=== PATIENT | male | born 1995 | race Caucasian/White ===

== ENCOUNTER 2017-02-06 17:50 | Emergency (ER) | payer OTHER ==
[~2017-02-06] VITALS: Ht 185.4 cm; Wt 137.4 kg
[~2017-02-06 17:50] MED LIST: AMOX875T PO
--- NOTE | 2017-02-06 18:26 | PHYS DOC ---
Past History Past Medical History: No Pertinent History Past Surgical History: No Surgical History Alcohol Use: None Drug Use: None Adult General Chief Complaint Chief Complaint: HEADACHE HPI HPI Patient is a 21 year old M who presents with a concussion. 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 Patient had no loss of consciousness but was observed on the sideline by his care trainer and went through the concussion protocol. Patient felt impression protocol. Patient was transferred to the emergency room for further evaluation and management. Patient complains of lightheaded dizziness and nausea with no vomiting. Patient went to some neck pain. Patient denies any trauma to the rest of his extremities. Patient has no other complaints. Patient does have an abscess to his right elbow that is improving. Review of Systems Review of Systems GEN: Denies fevers, chills, sweats HEENT: Denies blurred vision, sore throat CV: Denies chest pain RESP: Denies shortness of air, cough GI: Nausea NEURO: Lightheaded dizziness MSK: Denies weakness, joint pain/swelling Allergies Allergies Allergies Coded Allergies Type Severity Reaction Last Updated Verified No Known Drug Allergies 04/16/16 No Physical Exam Physical Exam GEN.: No apparent distress. Alert and oriented. HEENT: Head is normocephalic, atraumatic NECK: Supple. LUNGS: CTAB. HEART: RRR, S1, S2 present. Peripheral pulses intact ABDOMEN: Soft, nontender. Positive bowel sounds. EXTREMITIES: Without any cyanosis. NEUROLOGIC: Normal speech, normal tone, cranial nerves II through XII are grossly intact without any focal neurological deficits, normal finger to nose, normal [id number] PSYCHIATRIC: Normal affect, normal mood. SKIN: No ulcerations, small abscess healing to the right elbow, no area of induration, no area of fluctuance EKG EKG [] Radiology/Procedures Radiology/Procedures CT scan of the head and C-spine shows no intracranial process and no cervical fracture[] Course & Med Decision Making Course & Med Decision Making Pertinent Labs and Imaging studies reviewed. (See chart for details) ED course: Patient was seen and examined emergency room CT scan of the head and C-spine were ordered 1849: Updated patient on CT findings and plan to discharge home and continue with his follow-up with his college in regards to the postconcussion protocol. Patient is not cleared to play football until he sees independent physician. MDM: After reviewing the chart, CC/HPI/PMH, physical exam, [radiological results], I do not believe the patient has an acute intracranial process warranting further workup and/or admission at this time. Patient is stable for discharge. Patient' s not cleared to play football until cleared by an outside independent physician. Additional verbal discharge instructions were provided to the patient and that if symptoms get worse or any new symptoms arise that are worrisome to the patient he is to return to the emergency room immediately [] Dragon Disclaimer Dragon Disclaimer This chart was dictated in whole or in part using Voice Recognition software in a busy, high-work load, and often noisy Emergency Department environment. It may contain unintended and wholly unrecognized errors or omissions. Departure Departure: Impression: Primary Impression: Closed head injury Additional Impression: Concussion Disposition: 01 HOME, SELF-CARE Condition: IMPROVED Referrals: NON,STAFF (PCP) Patient Instructions: Concussion and Brain Injury Additional Instructions: Please follow-up with your family physician in the next one to 2 days return if symptoms increase Problem Qualifiers JAHAIRA DELACRUZ DO Feb 06, 2017 18:26
[2017-02-06] MEDS ORDERED: ONDANSETRON ODT 4 MG TAB.RAPDIS PO ONE (18:45)
--- NOTE | 2017-02-06 18:46 | RAD ---
Indication: Neck pain, closed head injury, dizziness, hit during football Technique: Noncontrast CT head was obtained. CT cervical spine includes axial images and coronal and sagittal reformatted images. No comparison is available. One or more of the following individualized dose reduction techniques were utilized for this examination: 1. Automated exposure control 2. Adjustment of the mA and/or kV according to patient size 3. Use of iterative reconstruction technique Findings: Head: The ventricles and sulci are within normal limits for age. There is no acute intracranial hemorrhage or extra-axial fluid collection. There is no mass effect or midline shift. Bowles-white differentiation is preserved. There is no depressed skull fracture. The included paranasal sinuses and mastoid air cells are clear. Cervical spine: There is no fracture or dislocation. Prevertebral soft tissues are within normal limits. Craniovertebral junction is unremarkable. There is C1 rachischisis which is developmental variation. Lymph nodes along the cervical chains are presumed reactive. Lung apices are clear. IMPRESSION: 1. No acute intracranial findings. 2. Negative for fracture or dislocation in the cervical spine. Electronically signed by: Mauricio Bowling MD (02/06/2017 6:43 PM) [facility]
[2017-02-06 19:05] VITALS: BP 147/78
== END 2017-02-06 19:08 | disposition home or self-care (01) ==
LOC: ER 17:50
DX: S06.0X0A Concussion without loss of consciousness, initial encounter (principal); M54.2 Cervicalgia; W51.XXXA Accidental striking against or bumped into by another person, initial encounter; Y93.61 Activity, american tackle football; Y99.8 Other external cause status; Y92.89 Other specified places as the place of occurrence of the external cause
CPT/HCPCS: 70450; 72125; 99284; Q0162

== ENCOUNTER 2017-02-11 01:24 | Emergency (ER) | payer OTHER ==
[~2017-02-11] VITALS: Ht 182.9 cm; Wt 136.1 kg
[2017-02-11] MEDS ORDERED: ALPR1TAB2 PO (01:41)
[2017-02-11 02:07] LABS: BACTERIA,URINE 0 /HPF (0-FEW); BILIRUBIN,URINE NEG (NEG); CLARITY,URINE CLEAR; COLOR,URINE YELLOW; GLUCOSE,URINE NEG (NEG); NITRITE,URINE NEG (NEG); RBC,URINE 0 /HPF (0-2); SQUAMOUS EPITHELIAL CELL,UR OCC /LPF; UROBILINOGEN,URINE 0.2 mg/dL (0.2 mg/dL); WBC,URINE OCC /HPF (0-4)
--- NOTE | 2017-02-11 02:29 | PHYS DOC ---
Past History Past Medical History: Anxiety Past Surgical History: No Surgical History Alcohol Use: None Drug Use: None Adult General Chief Complaint Chief Complaint: URINARY FREQUENCY HPI HPI Patient is a 21 year old male who presents with irritation tonight. He states last night he had sexual intercourse partially 4 times this morning one more time. He used condoms all but one of these times. His condoms had a chemical and then for lubrication and desensitization. He states today with the movies and he was wearing a pair of underwear and he started feeling tingling on his penis. He denies any rash, denies any dysuria. He took his underwear off and this didn't change his symptoms. He did drink much water and states that he actually does feel better now. States he's had one episode of this occurring before with the same pair of underwear. He denies any history of sexually transmitted infections. Review of Systems Review of Systems Constitutional: Denies fever or chills [] Eyes: Denies change in visual acuity, redness, or eye pain [] HENT: Denies nasal congestion or sore throat [] Respiratory: Denies cough or shortness of breath [] Cardiovascular: No additional information not addressed in HPI [] GI: Denies abdominal pain, nausea, vomiting, bloody stools or diarrhea [] : Denies dysuria or hematuria [] Musculoskeletal: Denies back pain or joint pain [] Integument: Denies rash or skin lesions [] Neurologic: Denies headache, focal weakness or sensory changes [] Endocrine: Denies polyuria or polydipsia [] Allergies Allergies Allergies Coded Allergies Type Severity Reaction Last Updated Verified No Known Drug Allergies 04/16/16 No Physical Exam Physical Exam Constitutional: Well developed, well nourished, no acute distress, non-toxic appearance. [] HENT: Normocephalic, atraumatic, bilateral external ears normal, oropharynx moist, no oral exudates, nose normal. [] Eyes: PERRLA, EOMI, conjunctiva normal, no discharge. [] Neck: Normal range of motion, no tenderness, supple, no stridor. [] Cardiovascular:Heart rate regular rhythm, no murmur [] Lungs & Thorax: Bilateral breath sounds clear to auscultation [] Abdomen/genital exam: Bowel sounds normal, soft, no tenderness, no masses, no pulsatile masses. Normal external genitalia is circumcised, no lesions, no discharge at the meatus, no rash noted Skin: Warm, dry, no erythema, no rash. [] Back: No tenderness, no CVA tenderness. [] Extremities: No tenderness, no cyanosis, no clubbing, ROM intact, no edema. [] Neurologic: Alert and oriented X 3, normal motor function, normal sensory function, no focal deficits noted. [] Psychologic: Affect normal, judgement normal, mood normal. [] Current Patient Data Vital Signs Vital Signs Date Time Temp Pulse Resp B/P (MAP) Pulse Ox O2 Delivery O2 Flow Rate FiO2 02/11/17 01:35 98.7 78 18 98 Room Air Lab Results Laboratory Tests Test 02/11/17 01:35 Urine Collection Type Unknown Urine Color Yellow Urine Clarity Clear Urine pH 6.0 Urine Specific [place] <=1.005 Urine Protein Neg (NEG-TRACE) Urine Glucose (UA) Neg mg/dL (NEG) Urine Ketones (Stick) Neg mg/dL (NEG) Urine Blood Neg (NEG) Urine Nitrite Neg (NEG) Urine Bilirubin Neg (NEG) Urine Urobilinogen Dipstick 0.2 mg/dL (0.2 mg/dL) Urine Leukocyte Esterase Neg (NEG) Urine RBC 0 /HPF (0-2) Urine WBC Occ /HPF (0-4) Urine Squamous Epithelial Cells Occ /LPF Urine Bacteria 0 /HPF (0-FEW) EKG EKG [] Radiology/Procedures Radiology/Procedures [] Impressions: Genital irritation Course & Med Decision Making Course & Med Decision Making Pertinent Labs and Imaging studies reviewed. (See chart for details) [I think this probably irritation from his condoms or from sex. His symptoms have resolved or at least has substantially improved. I did send gonorrhea chlamydia analysis of his urine. Return precautions given. He is agreeable to the plan and being discharged in stable condition this time. Dragon Disclaimer Dragon Disclaimer This chart was dictated in whole or in part using Voice Recognition software in a busy, high-work load, and often noisy Emergency Department environment. It may contain unintended and wholly unrecognized errors or omissions. Departure Departure: Impression: Primary Impression: Penile irritation Disposition: 01 HOME, SELF-CARE Condition: STABLE Referrals: NON,STAFF (PCP) Patient Instructions: Dysuria-Brief Additional Instructions: You likely have a local skin irritation from either condoms or sex. We sent off urine to make sure to have any sexual transmitted infections. I feel this is less likely. This takes about 3-5 days to have these results come back. You can try different condoms to see if this doesn't relieve your symptoms. If you notice penile discharge, fevers, worsening pain or other concerns please return back to emergency department. TREVON LEVIN MD Feb 11, 2017 02:29
[2017-02-11 02:45] VITALS: BP 128/74
== END 2017-02-11 02:50 | disposition home or self-care (01) ==
LOC: ER 01:24
DX: N48.89 Other specified disorders of penis (principal); F41.9 Anxiety disorder, unspecified
CPT/HCPCS: 36415; 81001; 87491; 87591; 99284

== ENCOUNTER 2017-12-18 11:34 | Emergency (ER) | payer SELFPAY ==
[~2017-12-18] VITALS: Ht 182.9 cm; Wt 145.1 kg
[~2017-12-18 11:34] MED LIST changes: +ALPR1TAB2 PO
[2017-12-18] MEDS ORDERED: PENICILLIN G BENZATHINE LA 1,200,000 UNIT/2 ML DISP.SYRIN. IM ONE (12:30)
--- NOTE | 2017-12-18 13:03 | PHYS DOC ---
Past History Past Medical History: Anxiety Past Surgical History: No Surgical History Alcohol Use: None Drug Use: None Adult General Chief Complaint Chief Complaint: SORE THROAT HPI HPI Patient is a 22-year-old male who presents with complaint of sore throat and swollen tonsils for the last couple of days. Patient states that he has a history of tonsillitis. He states that he had called his primary care physician who is located in [place] and his primary provider had told him to be seen for strep testing as well as get a shot of penicillin and antibiotics. He denies any fever. Review of Systems Review of Systems Constitutional: Denies fever or chills [] Eyes: Denies change in visual acuity, redness, or eye pain [] HENT: Positive sore throat and swollen tonsils[] Respiratory: Denies cough or shortness of breath [] Musculoskeletal: Denies back pain or joint pain [] Integument: Denies rash or skin lesions [] All other systems were reviewed and found to be within normal limits, except as documented in this note. Current Medications Current Medications Current Medications Medications (Trade) Dose Ordered Sig/Shane Start Time Stop Time Status Last Admin Dose Admin Penicillin G Benzathine (Bicillin L-A) 1,200,000 unit 1X ONCE 12/18/17 12:30 12/18/17 12:31 DC 12/18/17 12:36 1,200,000 UNIT Allergies Allergies Allergies Coded Allergies Type Severity Reaction Last Updated Verified No Known Drug Allergies 04/16/16 No Physical Exam Physical Exam Constitutional: Well developed, well nourished, no acute distress, non-toxic appearance. [] HENT: Normocephalic, atraumatic, bilateral external ears normal. Throat reveals pharyngeal erythema with tonsillar swelling and bilateral exudates. [] Eyes: PERRLA, EOMI, conjunctiva normal, no discharge. [] Neck: Supple with shotty anterior cervical lymphadenopathy. [] Cardiovascular:Heart rate regular rhythm, no murmur [] Lungs & Thorax: Bilateral breath sounds clear to auscultation [] Skin: Warm, dry, no erythema, no rash. [] Current Patient Data Lab Results Laboratory Tests Test 12/18/17 12:18 Group A Streptococcus Rapid Negative (NEGATIVE) EKG EKG [] Radiology/Procedures Radiology/Procedures [] Course & Med Decision Making Course & Med Decision Making Pertinent Labs and Imaging studies reviewed. (See chart for details) [] Dragon Disclaimer Dragon Disclaimer This electronic medical record was generated, in whole or in part, using a voice recognition dictation system. Departure Departure: Impression: Primary Impression: Tonsillitis Disposition: HOME, SELF-CARE Condition: STABLE Referrals: NON,STAFF (PCP) Patient Instructions: Tonsillitis Additional Instructions: Take prescribed medication as directed and follow-up with your primary care provider in the next few days. ALFREDO REDD Jr. DO Dec 18, 2017 13:03
[2017-12-18 13:10] VITALS: BP 141/92
== END 2017-12-18 13:35 | disposition home or self-care (01) ==
LOC: ER 11:34
DX: J03.90 Acute tonsillitis, unspecified (principal); F41.9 Anxiety disorder, unspecified
CPT/HCPCS: 87070; 87880; 96372; 99283; J0561

== ENCOUNTER 2019-03-15 13:04 | Emergency (ER) | payer OTHER ==
[2019-03-15 13:15] VITALS: BP 171/110
[2019-03-15] MEDS ORDERED: IV NORMAL SALINE 1,000ML 1,000 ML IV SCH (13:24)
--- NOTE | 2019-03-15 13:29 | PHYS DOC ---
Past History Past Medical History: Anxiety Past Surgical History: No Surgical History Smoking: Cigarettes Alcohol Use: None Drug Use: Marijuana Adult General Chief Complaint Chief Complaint: CHEST PAIN HPI HPI Patient is a runny 4-year-old male presents complaining of a fast heart rate that started approximately 10 minutes prior to arrival. Patient denies any chest pain. The symptoms get better when he is up and walking around. He took 2 adult aspirin prior to arrival due to concern of significant cardiac etiology for this. He denies any PE risk factors to include trauma, stasis, or known hypercoagulable state. Denies any nausea, vomiting, or diaphoresis. Patient reports that he drank a lot of alcohol last night and had one hit of marijuana. He denies any other recreational drugs. Symptoms started while he was driving home from eating at [employer].[] Review of Systems Review of Systems Constitutional: Denies fever or chills [] Eyes: Denies change in visual acuity, redness, or eye pain [] HENT: Denies nasal congestion or sore throat [] Respiratory: Denies cough or shortness of breath [] Cardiovascular: History of present illness[] GI: Denies abdominal pain, nausea, vomiting, bloody stools or diarrhea [] : Denies dysuria or hematuria [] Musculoskeletal: Denies back pain or joint pain [] Integument: Denies rash or skin lesions [] Neurologic: Denies headache, focal weakness or sensory changes [] Endocrine: Denies polyuria or polydipsia [] All other systems were reviewed and found to be within normal limits, except as documented in this note. Allergies Allergies Allergies Coded Allergies Type Severity Reaction Last Updated Verified No Known Drug Allergies 04/16/16 No Physical Exam Physical Exam Constitutional: Well developed, well nourished, no acute distress, non-toxic appearance. [] HENT: Normocephalic, atraumatic, bilateral external ears normal, oropharynx moist, no oral exudates, nose normal. [] Eyes: PERRLA, EOMI, conjunctiva normal, no discharge. [] Neck: Normal range of motion, no tenderness, supple, no stridor. [] Cardiovascular:Heart rate is tachycardic with a regular rhythm, no murmur [] Lungs & Thorax: Bilateral breath sounds clear to auscultation [] Abdomen: Bowel sounds normal, soft, no tenderness, no masses, no pulsatile masses. [] Skin: Warm, dry, no erythema, no rash. [] Back: No tenderness, no CVA tenderness. [] Extremities: No tenderness, no cyanosis, no clubbing, ROM intact, no edema. [] Neurologic: Alert and oriented X 3, normal motor function, normal sensory function, no focal deficits noted. [] Psychologic: Affect anxious, judgement normal, mood normal. [] EKG EKG EKG shows a sinus tachycardia at 114 bpm, normal axis, QTC of 442 ms, no ST elevation. Interpreted by me at 1322.[] Radiology/Procedures Radiology/Procedures PROCEDURE: CHEST PA & LATERAL CHEST PA LATERAL INDICATION: Tachycardia. COMPARISON STUDY: 07/06/2016. FINDINGS: Lungs: Normal lung volume. No pulmonary mass or consolidation. The tracheobronchial tree and hilar structures are normal. Pleura: No pleural effusion or pneumothorax. Heart and Mediastinum: The cardiomediastinal silhouette is normal. The great vessels of the thorax are normal. Bones and Soft Tissues: The bones and soft tissues are within normal limits. IMPRESSION: No acute cardiopulmonary process.[] Course & Med Decision Making Course & Med Decision Making Pertinent Labs and Imaging studies reviewed. (See chart for details) ED course: Patient arrived, was placed in bed, and tolerated exam well. He was given IV fluids. His heart rate improved to than 90s with out any other interventions. Findings and plan were discussed with the patient who voiced understanding. All questions were answered. He was discharged in improved condition. Medical decision making: There is no evidence of pneumonia, pneumothorax, pancreatitis, pulmonary embolism, nor acute coronary syndrome. This may be related to his alcohol use along with his recreational drug use. May also be related to his underlying anxiety disorder. Patient is appropriate for outpatient follow-up and management by his primary care team.[] Dragon Disclaimer Dragon Disclaimer This electronic medical record was generated, in whole or in part, using a voice recognition dictation system. Departure Departure: Impression: Primary Impression: Tachycardia Disposition: 01 HOME, SELF-CARE Condition: IMPROVED Referrals: PCP,UNKNOWN (PCP) Patient Instructions: Nonspecific Tachycardia Additional Instructions: Drink plenty of fluids. Follow-up with your regular doctor in 2 days. If you do not have regular doctor list of local clinics we provided for you. Do not drink alcohol in excess. Do not use any drugs or medications that are not prescribed for you, they may kill you! Return to the ER if worsening chest discomfort, difficulty breathing, or any other concerns. JONA IGNACIO DO Mar 15, 2019 13:29
--- NOTE | 2019-03-15 13:46 | RAD ---
CHEST PA LATERAL INDICATION: Tachycardia. COMPARISON STUDY: 07/06/2016. FINDINGS: Lungs: Normal lung volume. No pulmonary mass or consolidation. The tracheobronchial tree and hilar structures are normal. Pleura: No pleural effusion or pneumothorax. Heart and Mediastinum: The cardiomediastinal silhouette is normal. The great vessels of the thorax are normal. Bones and Soft Tissues: The bones and soft tissues are within normal limits. IMPRESSION: No acute cardiopulmonary process. Electronically signed by: Collin Elmore MD (03/15/2019 1:44 PM) [id number]
[2019-03-15 14:13] LABS: BASO # 0.1 x10^3/uL (0.0-0.2); BASO % 1 % (0-3); EOS # 0.1 x10^3/uL (0.0-0.7); EOS % 1 % (0-3); HEMATOCRIT 45.7 % (39.0-53.0); HEMOGLOBIN 15.3 g/dL (13.0-17.5); LYMPH % 33 % (24-48); MEAN CORPUSCULAR HEMOGLOBIN 31 pg (25-35); MEAN CORPUSCULAR HGB CONC 34 g/dL (31-37); MEAN CORPUSCULAR VOLUME 92 fL (79-100); MONO # 0.6 x10^3/uL (0.0-1.1); MONO % 7 % (0-9); NEUT # 5.4 x10^3uL (1.8-7.7); NEUT % 59 % (31-73); PLATELET COUNT 299 x10^3/uL (140-400); RED BLOOD COUNT 4.98 x10^6/uL (4.30-5.70); RED CELL DISTRIBUTION WIDTH 12.9 % (11.5-14.5); WHITE BLOOD COUNT 9.2 x10^3/uL (4.0-11.0)
[2019-03-15 14:26] LABS: BARBITURATES NEG (NEG); BENZODIAZEPINES NEG (NEG); CANNABINOIDS NEG (NEG); COCAINE NEG (NEG); METHADONE NEG (NEG); OPIATES NEG (NEG); PHENCYCLIDINE NEG (NEG)
[2019-03-15 14:27] LABS: AMPHETAMINE/METHAMPHETAMINE NEG (NEG)
[2019-03-15 14:29] LABS: BILIRUBIN,URINE NEG (NEG); CLARITY,URINE CLEAR; COLOR,URINE YELLOW; GLUCOSE,URINE NEG (NEG)
[2019-03-15 14:30] LABS: BACTERIA,URINE 0 /HPF (0-FEW); NITRITE,URINE NEG (NEG); RBC,URINE 0 /HPF (0-2); UROBILINOGEN,URINE 1 mg/dL (0.2 mg/dL)
[2019-03-15 14:32] LABS: ALBUMIN 4.3 g/dL (3.4-5.0); ALBUMIN/GLOBULIN RATIO 1.2 (1.0-1.7); CALCIUM 9.3 mg/dL (8.5-10.1); GFR 93.4; MAGNESIUM 2.1 mg/dL (1.8-2.4); POTASSIUM 3.9 mmol/L (3.5-5.1); TOTAL BILIRUBIN 0.2 mg/dL (0.2-1.0); TOTAL PROTEIN 7.8 g/dL (6.4-8.2)
--- NOTE | 2019-03-17 04:00 | EKG ---
[address] [address] Test Date: 2019-03-15 Test Time: 13:21:25 Pat Name: CHESTER ROSS Department: Room: Gender: M Toe Former: STAR : 1995 Requested By: JONA IGNACIO Order Number: [id number] Reading MD: Measurements Intervals Hubert Rate: 114 P: 47 NV: 164 QRS: 59 QRSD: 102 T: 26 QT: 318 QTc: 442 Interpretive Statements SINUS TACHYCARDIA OTHERWISE NORMAL ECG RI6.01 No previous ECG available for comparison
== END 2019-03-15 15:10 | disposition home or self-care (01) ==
LOC: ER 13:04
DX: R00.0 Tachycardia, unspecified (principal); F41.9 Anxiety disorder, unspecified; F17.210 Nicotine dependence, cigarettes, uncomplicated
CPT/HCPCS: 36415; 71046; 80053; 80307; 81001; 83690; 83735; 83880; 84443; 84484; 85025; 85379; 93005; 99285-25; J7030